=== PATIENT | female | born 1950 | race Caucasian/White ===

== ENCOUNTER → 2017-04-30 | Outpatient (CLI) | payer MEDICARE, OTHER ==
--- NOTE | 2017-04-30 14:17 | EST ---
EXERCISE STRESS AGE:: 66 SEX:: F HT:: 68" WT:: 205 PROTOCOL:: Wolfgang Exercise Stress Test STAGE:: I DURATION OF EXERCISE:: 3:00 HEART RATE REST:: 89 BLOOD PRESSURE REST:: 139/81 MAXIMUM HEART RATE ACHIEVED:: 139 MAXIMUM BLOOD PRESSURE:: 197/72 85% MPHR:: 129 100% MPHR:: 152 METS:: 4.6 INDICATIONS:: Atypical chest pain, near syncope. CLINICAL INFORMATION:: Baseline EKG revealed a sinus mechanism without significant ST-T changes. Patient walked on a standard Wolfgang protocol for 3 minutes. She developed fatigue, shortness of breath. Stress test was stoppled. Maximum heart rate was 139 beats per minute, well above 85% of predicted maximal. She had rare isolated PVCs. No angina or any significant arrhythmia was noted. This is a negative stress test with limited exercise capacity. There is no evidence to suggest ischemia but exercise capacity is limited. MMODL / IJN: [id number] /
--- NOTE | 2017-04-30 15:09 | BD ---
EXAMINATION TYPE: MG DEXA axial skeleton. DATE OF EXAM: 04/30/2017 COMPARISON: 2006 CLINICAL HISTORY: OSTEOPENIA Height: 5'7 1/2 Weight: 207 FRAX RISK QUESTIONS: Alcohol (3 or more units per day): no Family History (Parent hip fracture): yes Glucocorticoids (More than 3mos): no (Ex: prednisone, prednisolone, methylprednisolone, dexamethasone, and hydrocortisone). History of Fracture in Adulthood: no Secondary Osteoporosis: 1. Type 1 Diabetes: no 2. Hyperthyroidism: no 3. Menopause before 45: yes 4. Malnutrition: no 5. Chronic liver disease: no Rheumatoid Arthritis: no Current Tobacco Use: no RISK FACTORS HISTORY OF: Family History of Osteoporosis: Postmenopausal woman: MEDICATIONS: Additional Medications: Singulair, hypertension Additional History: osteopenia EXAM MEASUREMENTS: Bone mineral densitometry was performed using the [employer] System. Bone mineral density as measured about the Lumbar spine is: ----- L1-L4(G/cm2): 1.151 T Score Values are as follows: ----- L2: -0.3 ----- L3: -0.1 ----- L4: 0.6 ----- L1-L4: -0.2 Bone mineral density has: Decreased -3.0% since study of: 12/23/2006 Bone mineral density about the R hip (g/cm2): 0.825 Bone mineral density about the L hip (g/cm2): 0.847 T Score values are as follows: -----R Neck: -1.5 -----L Neck: -1.4 -----R Total: -1.4 -----L Total: -1.2 Bone mineral density has: Decreased -16.2% since study of: 12/23/2006 IMPRESSION: Osteopenia (T Score between -2.5 and -1 as noted by T score values: Tenzin Hips There is slightly increased risk of fracture and the patient may be considered for treatment. Re-Screen 2-5 years. NOTE: T-SCORE=SD OF THE YOUNG ADULT MEAN.
--- NOTE | 2017-05-01 08:40 | ECHOF ---
Referral Reason:R07.89 chest pain MEASUREMENTS -------- HEIGHT: 172.7 cm WEIGHT: 93.0 kg BP: 131/89 RVIDd: 2.6 cm (< 3.3) IVSd: 1.3 cm (0.6 - 1.1) LVIDd: 3.6 cm (3.9 - 5.3) LVPWd: 1.3 cm (0.6 - 1.1) IVSs: 1.8 cm LVIDs: 2.5 cm LVPWs: 1.6 cm LAESV Index (A-L): 14.61 ml/m Ao Diam: 3.5 cm (2.0 - 3.7) AV Cusp: 2.0 cm (1.5 - 2.6) LA Diam: 3.2 cm (2.7 - 3.8) MV EXCURSION: 12.842 mm (> 18.000) MV EF SLOPE: 28 mm/s (70 - 150) EPSS: 0.8 cm MV E Ganesh: 0.46 m/s MV DecT: 265 ms MV A Ganesh: 0.87 m/s MV E/A Ratio: 0.53 RAP: 5.00 mmHg RVSP: 10.49 mmHg FINDINGS -------- Sinus rhythm. This was a technically good study. The left ventricular size is normal. There is mild concentric left ventricular hypertrophy. Overall left ventricular systolic function is normal with, an EF between 55 - 60 %. The right ventricle is normal in size and function. Normal LA size by volume 22+/-6 ml/m2. The right atrium is normal in size. The aortic valve is trileaflet, and appears structurally normal. No aortic stenosis or regurgitation. The mitral valve leaflets are mildly thickened. There is trace mitral regurgitation. Trace tricuspid regurgitation present. Right ventricular systolic pressure is normal at < 35 mmHg. There is no evidence of pulmonary hypertension. The pulmonic valve was not well visualized. The aortic root size is normal. Normal inferior vena cava with normal inspiratory collapse consistent with estimated right atrial pressure of 5 mmHg. The pericardium is normal. There is no pericardial effusion. CONCLUSIONS -------- 1. Sinus rhythm. 2. Trace tricuspid regurgitation present. 3. Right ventricular systolic pressure is normal at < 35 mmHg. 4. There is no evidence of pulmonary hypertension. 5. The pulmonic valve was not well visualized. 6. The aortic root size is normal. 7. There is no pericardial effusion. 8. This was a technically good study. 9. The left ventricular size is normal. 10. There is mild concentric left ventricular hypertrophy. 11. Overall left ventricular systolic function is normal with, an EF between 55 - 60 %. 12. Normal LA size by volume 22+/-6 ml/m2. 13. The aortic valve is trileaflet, and appears structurally normal. No aortic stenosis or regurgitation. 14. The mitral valve leaflets are mildly thickened. 15. There is trace mitral regurgitation. WARRANTY CLERK: Suri Reyes RDCS
== END | disposition home or self-care (01) ==
LOC: RADNMMAIN 10:59
PROVIDERS: ATTEND Family Medicine
DX: I51.7 Cardiomegaly (principal); M85.88 Other specified disorders of bone density and structure, other site; R07.89 Other chest pain
CPT/HCPCS: 77080; 93017; 93306

== ENCOUNTER → 2017-09-29 | Outpatient (CLI) | payer MEDICARE, OTHER ==
--- NOTE | 2017-09-29 10:49 | XR ---
EXAMINATION TYPE: XR chest 2V DATE OF EXAM: 09/29/2017 COMPARISON: Chest x-ray May 06, 2016 HISTORY: Presurgical study TECHNIQUE: Frontal and lateral views of the chest are obtained. FINDINGS: There is no focal air space opacity, pleural effusion, or pneumothorax seen. The cardiac silhouette size is within normal limits with atherosclerotic change in aorta. Spine is straightened o n lateral view. IMPRESSION: No acute cardiopulmonary process. No significant change from prior.
[2017-09-29 11:02] LABS: HCT 37.3 % (34.0-46.0); HGB 12.5 gm/dL (11.4-16.0); MCH 30.7 pg (25.0-35.0); MCHC 33.6 g/dL (31.0-37.0); MCV 91.4 fL (80.0-100.0); Mean Platelet Volume 7.4; Platelet Count 236 k/uL (150-450); RBC 4.08 m/uL (3.80-5.40); RDW 12.4 % (11.5-15.5); WBC 6.9 k/uL (3.8-10.6)
[2017-09-29 11:09] LABS: Anion Gap 10 mmol/L; Blood Urea Nitrogen 14 mg/dL (7-17); Carbon Dioxide 28 mmol/L (22-30); Chloride 102 mmol/L (98-107); Potassium 4.2 mmol/L (3.5-5.1); Sodium 140 mmol/L (137-145)
[2017-09-29 11:25] LABS: Appearance,Urine Clear (Clear); Bilirubin,Urine Negative (Negative); Blood,Urine Negative (Negative); Color,Urine Colorless; Glucose,Urine (UA) Negative (Negative); Ketones,Urine Negative (Negative); Leukocyte Esterase,Urine Negative (Negative); Nitrite,Urine Negative (Negative); Protein,Urine Negative (Negative); Specific Gravity,Urine 1.002 (1.001-1.035); Urobilinogen,Urine <2.0 mg/dL (<2.0)
[2017-09-29 11:33] LABS: Partial Thromboplastin Time 22.5 sec (22.0-30.0); Prothrombin Time 9.5 sec (9.0-12.0)
== END | disposition home or self-care (01) ==
LOC: RADXRMAIN 10:11
PROVIDERS: ATTEND Neurological Surgery
DX: Z01.818 Encounter for other preprocedural examination (principal); G51.3 Clonic hemifacial spasm
CPT/HCPCS: 36415; 71046; 80051; 81003; 82565; 84520; 85027; 85610; 85730; 87070; 93005

== ENCOUNTER → 2017-10-15 | Outpatient (CLI) | payer MEDICARE, OTHER ==
--- NOTE | 2017-10-15 22:12 | XR ---
EXAMINATION TYPE: XR foot complete LT DATE OF EXAM: 10/15/2017 COMPARISON: NONE HISTORY: 66-year-old female left fifth metatarsal pain for months, evaluate for fracture TECHNIQUE: 3 views FINDINGS: There is metal suture along the medial aspect of the first proximal phalanx related to prior surgery. Degenerative changes at the first MTP joint and first metatarsal sesamoid joints with mild hallux va lgus. No acute fracture, subluxation, or dislocation. Moderate-sized plantar calcaneal spur. There ma y be underlying pes planus which would be evaluated with a weightbearing view. No acute fracture or d islocation seen. Degenerative changes along the third TMT joint. IMPRESSION: 1. Some postsurgical changes along the great toe. There is underlying first MTP joint and first metat arsal sesamoid joint osteoarthrosis with mild hallux valgus. 2. 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 3. Small to moderate-sized plantar calcaneal spur. 4. Possible underlying pes planus which would be better evaluated with a weightbearing view. 5. No acute fracture seen.
== END | disposition home or self-care (01) ==
LOC: RADXRMAIN 16:17
PROVIDERS: ATTEND Family Medicine
DX: M19.072 Primary osteoarthritis, left ankle and foot (principal); M20.12 Hallux valgus (acquired), left foot; M77.32 Calcaneal spur, left foot; Z98.890 Other specified postprocedural states

== ENCOUNTER 2018-05-17 03:47 | Emergency (ER) | payer MEDICARE, OTHER ==
[2018-05-17 03:54] VITALS: BP 166/95; PULSE 81; RESP 16; TEMP 97.8
[2018-05-17 04:15] LABS: Basophils # (A) 0.1 k/uL (0-0.2); Basophils % (A) 1 %; Eosinophils # (A) 0.2 k/uL (0-0.7); Eosinophils % (A) 3 %; HCT 39.1 % (34.0-46.0); HGB 13.3 gm/dL (11.4-16.0); Lymphocytes # (A) 2.8 k/uL (1.0-4.8); Lymphocytes % (A) 36 %; MCH 30.3 pg (25.0-35.0); MCHC 33.9 g/dL (31.0-37.0); MCV 89.4 fL (80.0-100.0); Mean Platelet Volume 7.7; Monocytes # (A) 0.5 k/uL (0-1.0); Monocytes % (A) 7 %; Neutrophils % (A) 52 %; Platelet Count 194 k/uL (150-450); RBC 4.37 m/uL (3.80-5.40); RDW 12.6 % (11.5-15.5); WBC 7.7 k/uL (3.8-10.6)
[2018-05-17 04:25] LABS: Partial Thromboplastin Time 23.2 sec (22.0-30.0); Prothrombin Time 9.6 sec (9.0-12.0)
[2018-05-17 04:29] LABS: ALT 28 U/L (9-52); AST 26 U/L (14-36); Albumin 4.1 g/dL (3.5-5.0); Alkaline Phosphatase 64 U/L (38-126); Anion Gap 9 mmol/L; Blood Urea Nitrogen 16 mg/dL (7-17); Calcium 9.4 mg/dL (8.4-10.2); Carbon Dioxide 26 mmol/L (22-30); Chloride 106 mmol/L (98-107); Glucose 109 mg/dL (74-99); Magnesium 2.1 mg/dL (1.6-2.3); Sodium 141 mmol/L (137-145); Total Bilirubin 0.6 mg/dL (0.2-1.3)
[2018-05-17 04:37] LABS: Creatine Kinase 149 U/L (30-135)
[2018-05-17 04:50] LABS: Creatine Kinase MB 0.9 ng/mL (0.0-2.4); Troponin I <0.012 ng/mL (0.000-0.034)
[2018-05-17 05:14] LABS: Amylase 55 U/L (30-110); Lipase 225 U/L (23-300)
[2018-05-17] MEDS ORDERED: MAG HYDROX/AL HYDROX/SIMETH 30 ML, HYOSCYAMINE ELIXIR 10 ML, CIMETIDINE HCL 300 MG, LID... PO STA ×4 (05:39)
--- NOTE | 2018-05-17 06:02 | XR ---
EXAM: XR Chest, 2 Views CLINICAL HISTORY: ITS.REASON XR Reason: Chest Pain TECHNIQUE: Frontal and lateral views of the chest. COMPARISON: CXR 09/29/17 FINDINGS: Lungs: Unremarkable. No consolidation. Pleural space: Unremarkable. No pneumothorax. Heart: Unremarkable. No cardiomegaly. Mediastinum: Atherosclerosis of the aorta. Bones/joints: Minimal degenerative changes of the spine. Tendon anchors are seen within the right humerus. IMPRESSION: No acute cardiopulmonary findings.
--- NOTE | 2018-05-17 06:41 | ED ---
Chest Pain HPI - General Chief Complaint: Chest Pain Stated Complaint: Chest Pain Time Seen by Provider: 05/17/18 04:17 Source: patient Mode of arrival: wheelchair Limitations: no limitations - History of Present Illness MD Complaint: chest pain Onset/Timin -: hour(s) Onset: during rest, awoke with symptoms Pain Location: substernal, epigastric Pain Radiation: back Severity: moderate Quality: tightness Consistency: other (Markedly improved) Improves With: nothing Worsens With: nothing Anginal Symptoms: nausea Treatments Prior to Arrival: aspirin - Related Data Home Medications Medication Instructions Recorded Confirmed Calcium Carbonate [Calcium] 1,000 mg PO DAILY 06/20/17 06/20/17 Cholecalciferol [Vitamin D3] 5,000 PO DAILY 06/20/17 Losartan [Cozaar] 25 mg PO DAILY 06/20/17 06/20/17 Montelukast [Singulair] 10 mg PO DAILY 06/20/17 06/20/17 Omeprazole 20 mg PO DAILY 06/20/17 06/20/17 Allergies Allergy/AdvReac Type Severity Reaction Status Date / Time No Known Allergies Allergy Verified 05/17/18 03:54 Review of Systems ROS Statement: Those systems with pertinent positive or pertinent negative responses have been documented in the HPI. ROS Other: All systems not noted in ROS Statement are negative. Constitutional: Denies: fever, chills, weakness Respiratory: Denies: cough, dyspnea Cardiovascular: Reports: chest pain. Denies: palpitations, orthopnea, edema, syncope Gastrointestinal: Reports: nausea. Denies: abdominal pain, vomiting, diarrhea, melena, hematochezia Genitourinary: Denies: dysuria, hematuria Musculoskeletal: Denies: back pain Skin: Denies: rash Neurological: Denies: headache, weakness, numbness EKG Findings - EKG Results: EKG: interpreted by ERMD WNL, sinus rhythm (Rate approximately 73 bpm), normal axis, normal QRS, normal ST/T, no acute changes - PA, Pacemaker, Normal: Normal tracing: normal tracing Past Medical History Past Medical History: Hyperlipidemia Additional Past Medical History / Comment(s): heart murmur History of Any Multi-Drug Resistant Organisms: None Reported Past Surgical History: Hysterectomy Additional Past Surgical History / Comment(s): bilat heal spurs, 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 Absent: scleral icterus, conjunctival injection Neck exam: Present: normal inspection Respiratory exam: Present: normal lung sounds bilaterally. Absent: respiratory distress, wheezes, rales, rhonchi, stridor, chest wall tenderness, accessory muscle use, decreased breath sounds, prolonged expiratory Cardiovascular Exam: Present: regular rate, normal rhythm, normal heart sounds. Absent: systolic murmur, diastolic murmur, rubs, gallop GI/Abdominal exam: Present: soft. Absent: distended, tenderness, guarding, rebound, rigid, mass, pulsatile mass Extremities exam: Present: normal inspection, normal capillary refill. Absent: pedal edema, calf tenderness Back exam: Absent: CVA tenderness (R), CVA tenderness (L) Neurological exam: Present: alert Skin exam: Present: warm, dry, intact, normal color. Absent: rash Course Vital Signs 05/17/18 03:50 Temperature 97.8 F Pulse Rate 81 Respiratory 16 Rate Blood Pressure 166/95 O2 Sat by Pulse 99 Oximetry Chest Pain MDM - MDM 67-year-old woman with substernal chest pain and negative initial workup. I discussed the results with the patient. Her symptoms have resolved. I did recommend admission for serial cardiac enzymes and telemetry monitoring, but the patient states that as long as she is feeling well she would like to go home. 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 Disposition Clinical Impression: Chest pain Disposition: HOME SELF-CARE Condition: Good Instructions: Chest Pain (ED) Is patient prescribed a controlled substance at d/c from ED?: No Referrals: Brandin Gaitan DO [Primary Care Provider] - 1-2 days
== END 2018-05-17 07:15 | disposition home or self-care (01) ==
LOC: EC 03:47
DX: R07.89 Other chest pain (principal); R10.13 Epigastric pain; R11.0 Nausea; Z79.899 Other long term (current) drug therapy
CPT/HCPCS: 36415; 71046; 80053; 82150; 82550; 82553; 83690; 83735; 84484; 85025; 85379; 85610; 85730; 99285

== ENCOUNTER → 2020-10-19 | Outpatient (CLI) | payer MEDICARE, OTHER ==
--- NOTE | 2020-10-19 15:59 | XR ---
EXAMINATION TYPE: XR Hip Bilateral Complete DATE OF EXAM: 10/19/2020 CLINICAL HISTORY: pain TECHNIQUE: AP and frogleg views of the right hip are obtained. COMPARISON: None. FINDINGS: There is no acute fracture/dislocation evident. The joint space appears mildly narrowed. . The overlying soft tissue appears unremarkable. IMPRESSION: 1. There is no acute fracture or dislocation. ICD 10 NO FRACTURE, INITIAL EVALUATION
== END | disposition home or self-care (01) ==
LOC: RADXRMAIN 15:29
PROVIDERS: ATTEND Family Medicine
DX: M25.551 Pain in right hip (principal); M25.552 Pain in left hip
CPT/HCPCS: 73521

== ENCOUNTER → 2021-05-09 | Outpatient (CLI) | payer MEDICARE, OTHER ==
--- NOTE | 2021-05-09 16:04 | XR ---
EXAMINATION TYPE: XR chest 2V DATE OF EXAM: 05/09/2021 COMPARISON: 05/17/2018 INDICATION: Cough TECHNIQUE: Frontal and lateral views of the chest are obtained. FINDINGS: The heart size is normal. The pulmonary vasculature is normal. The lungs are clear. IMPRESSION: 1. No acute pulmonary process.
== END | disposition home or self-care (01) ==
LOC: RADXRMAIN 15:31
PROVIDERS: ATTEND Family Medicine
DX: R05 Cough (principal)
CPT/HCPCS: 71046

== ENCOUNTER → 2022-01-24 | Outpatient (CLI) | payer MEDICARE, OTHER ==
--- NOTE | 2022-01-24 13:09 | XR ---
EXAMINATION TYPE: XR chest 2V DATE OF EXAM: 01/24/2022 COMPARISON: Chest x-ray May 09, 2021 HISTORY: Persistent cough. TECHNIQUE: Frontal and lateral views of the chest are obtained. FINDINGS: There is no suspicious focal air space opacity, pleural effusion, or pneumothorax seen. T he cardiac silhouette size remains within normal limits with atherosclerotic change in the thoracic a anselmo. Metallic anchors right humeral head from rotator cuff surgery are noted. IMPRESSION: No acute cardiopulmonary process. No significant change from prior.
== END | disposition home or self-care (01) ==
LOC: RADXRMAIN 12:46
PROVIDERS: ATTEND Family Medicine
DX: R05.3 Chronic cough (principal)
CPT/HCPCS: 71046

== ENCOUNTER → 2022-08-08 | Outpatient (CLI) | payer MEDICARE, OTHER ==
--- NOTE | 2022-08-08 11:27 | US ---
EXAMINATION TYPE: US carotid duplex BILAT DATE OF EXAM: 08/08/2022 COMPARISON: 12/26/2014 CLINICAL HISTORY: R55 syncope. TECHNIQUE: Carotid duplex ultrasound examination. Indirect Doppler criteria was utilized. FINDINGS: EXAM MEASUREMENTS: RIGHT: Peak Systolic Velocity (PSV) cm/sec ----- Right CCA: 60.1 ----- Right ICA: 59.8 ----- Right ECA: 54.9 ICA/CCA ratio: 1.0 RIGHT: End Diastole cm/sec ----- Right CCA: 10.9 ----- Right ICA: 19.4 ----- Right ECA: 6.5 LEFT: Peak Systolic Velocity (PSV) cm/sec ----- Left CCA: 71.6 ----- Left ICA: 57.8 ----- Left ECA: 39.1 ICA/CCA ratio: 0.8 LEFT: End Diastole cm/sec ----- Left CCA: 20.6 ----- Left ICA: 21.5 ----- Left ECA: 7.6 VERTEBRALS (direction of flow): Right Vertebral: Antegrade Left Vertebral: Antegrade Rhythm: Normal HUMANITIES DIVISION CHAIR NOTES: No significant stenosis seen IMPRESSION: Less than 50% stenosis of the bilateral carotid bifurcations. Criteria for Assigning % of Stenosis / Diameter reduction (Estimation based on the indirect measurements of the internal carotid artery velocities (ICA PSV). 1. Normal (no stenosis)=ICA PSV < 125 cm/s: ratio < 2.0: ICA EDV<40 cm/s. 2. Less than 50% stenosis=ICA PSV < 125 cm/s: ratio < 2.0: ICA EDV<40 cm/s. 3. 50 to 69% stenosis=ICA PSV of 125 to 230 cm/s: ration 2.0 ? 4.0: ICA EDV 40-100 cm/s. 4. Greater than 70% stenosis to near occlusion= ICA PSV > 230 cm/s: ratio > 4.0: ICA EDV > 100 cm/s. 5. Near occlusion= ICA PSV velocities may be low or undetectable: variable ratio and ICA EDV. 6. Total occlusion=unable to detect flow.
== END | disposition home or self-care (01) ==
LOC: RADUSWWP 10:54
PROVIDERS: ATTEND Family Medicine
DX: I65.23 Occlusion and stenosis of bilateral carotid arteries (principal); R55 Syncope and collapse
CPT/HCPCS: 93880

== ENCOUNTER → 2022-08-27 | Outpatient (CLI) | payer MEDICARE, OTHER ==
--- NOTE | 2022-08-27 10:21 | CA ---
Exercise Stress Test Report Name: Renea Morataya Exam Date: 08/27/2022 09:11 Exam Location: [facility] Ht (in): 68 Wt (lb): 210 BSA: 2.09 Ordering Phys: Brandin Gaitan DO Referring Phys: JARRED, Technologist: Brandin Samano Age: 71 Gender: F : 1950 Procedure CPT: Indications: R55 Syncope ICD-10 Codes: Patient History: Medications: LOSARTAN Meds past 24 hrs: Pretest Chest Pain: STRESS TEST Wolfgang Protocol Exercise Duration (min:sec): 03:[address] Depressions (mm): Angina Score: Hawk Score: Resting HR (bpm): 84 Peak HR (bpm): 134 Resting BP (mmHg): 128 / 70 Peak BP (mmHg): 191 / 66 MPHR: 147 Target HR: 125 % MPHR: 91 METS: 4.7 Total Dose: Peak Dose: Atropine: Double Product: 01964 BP Response: Stress Termination: Reached target heart rate Stress Symptoms: SOME VERTIGO, SHORT OF BREATH Stress Summary: ECG ANALYSIS Resting ECG: Stress ECG: CONCLUSIONS Patient underwent exercise stress EKG with a Wolfgang protocol treadmill stress test. Patient exercised into Stage 1 for a total of 3 minutes reaching a total of 4.7 METS. Patient's maximum heart rate was 134 which represented 91 % age-predicted maximum heart rate. Stress EKG findings: At baseline patient's EKG showed normal sinus rhythm, normal axis, no significant ST or T wave abnormalities. At peak exercise, EKG showed no significant change from baseline. Conclusions: 1. Normal EKG response to exercise without evidence of inducible ischemia. 2. Poor exercise capacity. Dr. Taiwo Appiah DO (Electronically Signed) Final Date: 27 August 2022 10:20
== END | disposition home or self-care (01) ==
LOC: RADNMMAIN 08:25
PROVIDERS: ATTEND Family Medicine
DX: R55 Syncope and collapse (principal)
CPT/HCPCS: 93017

== ENCOUNTER → 2023-07-31 | Outpatient (CLI) | payer MEDICARE, OTHER ==
--- NOTE | 2023-08-09 15:10 | MR ---
MRI brain without contrast. HISTORY: Dizziness and migraine headaches. COMPARISON: 12/28/2013. TECHNIQUE: Multiecho multiplanar images the brain were obtained without contrast. FINDINGS: On the T1-weighted sagittal images midline structures including the craniovertebral junction relation ships appear normal. The ventricles, basal cisterns and sulci over the convexities are within normal limits for the patien t's age and there is no mass effect or shift of midline structures. There are multiple small foci of abnormal increased signal intensity in the white matter both cerebra l hemispheres consistent with chronic ischemic white matter demyelination. There is been no interval change compared to previous. Based on diffusion-weighted imaging, there is no diffusion restriction or acute ischemic event. The posterior fossa including the brainstem, fourth ventricle and cerebellar pontine angles appear no rmal. . There is abnormal fluid in the anterior mass developmental psychologist space on the right adjacent to the right maxi llary sinus which is seen previously possibly and possibly reflects remote injury or postsurgical libia nge. Clinical correlation with surgical history correlation is recommended. The intraorbital contents appear normal and symmetric. There is mild fluid in the mastoid air cells. IMPRESSION: 1. No acute bleed or mass effect. 2. No acute ischemic event. 3. Nonspecific multifocal white matter abnormalities most likely reflecting chronic ischemic white ma tter change. 4. No significant change compared to previous.
== END | disposition home or self-care (01) ==
LOC: RADMRIMAIN 14:34
PROVIDERS: ATTEND Family Medicine
DX: G43.909 Migraine, unspecified, not intractable, without status migrainosus (principal); R42 Dizziness and giddiness; R90.82 White matter disease, unspecified
CPT/HCPCS: 70551